=== PATIENT | female | born 1970 | race Two or more races ===

== ENCOUNTER → 2020-10-21 | Outpatient (CLI) | payer OTHER ==
[~2020-10-21] MED LIST: GADOTERATE 7.5 MMOL/15ML VIAL. IVP ONE
--- NOTE | 2020-10-21 13:06 | RAD ---
MRI BRAIN WO+W History:Reason: MEMORY LOSS, NOCTURNAL HEADACHES 15mL CLARISCAN / Spl. Instructions: / History: Technique: Multiplanar, multi sequential MR imaging was performed of the brain without and with intra venous contrast. Comparison: None Findings: No acute infarct. No intracranial hemorrhage. No mass effect. No hydrocephalus. Mild crowding of the cerebellar tonsils at the foramen magnum greatest on the right. Minimal foci of FLAIR hyperintensity within the frontal hemispheric white matter. Signal abnormality within the right sylvian fissure along the course of the right middle cerebral art elder M2 branches measures 0.9 x 0.5 cm (series 6 image 14 and series 10 image 17. There is peripheral enhancement of this region. Small gradient hypointensity within the left parietal lobe, may relate to prior microhemorrhage. Partially empty sella. Imaged orbits are unremarkable. Imaged paranasal sinuses and mastoid air cells are clear. Impression: 1. Signal abnormality within the right sylvian fissure in the region of the right middle cerebral ar dominik M2 branches with peripheral enhancement, concerning for vascular lesion such as aneurysm. Recomm end CT angiogram or MR angiogram to further assess. 2. Crowding of the cerebellar tonsils at the foramen magnum, right greater than left. 3. Minimal nonspecific white matter changes, may relate to sequelae of chronic microvascular ischemi a or migraine headaches, less likely demyelinating process. 4. Partially empty sella, often incidental, can be seen with intracranial hypertension in the approp riate clinical setting. Electronically signed by: Abimael Martin DO (10/21/2020 1:03 PM) [id number]
== END ==
LOC: MRI 10:41
PROVIDERS: ATTEND Physician Assistant Medical
DX: R51.9 Headache, unspecified (principal); E66.9 Obesity, unspecified; I83.893 Varicose veins of bilateral lower extremities with other complications; R41.3 Other amnesia
CPT/HCPCS: 70553; A9575

== ENCOUNTER → 2021-01-16 | Outpatient (CLI) | payer OTHER ==
[2021-01-16] MEDS: IOHEXOL 300 MG/ML 100ML VIAL. IV ONE (09:15)
--- NOTE | 2021-01-16 15:30 | RAD ---
CTA HEAD History:Reason: HEADACHE. ABNORMAL BRAIN MRI. MEMORY LOSS. / Spl. Instructions: OMNI 300 INJ. 75 MLS / History: Technique: After bolus of intravenous contrast, volumetric CT data acquisition was acquired of the he ad. Multiplanar reconstruction images to include MIP and 3-D reconstruction images are submitted. Exposure: One or more of the following individualized dose reduction techniques were utilized for thi s examination: 1. Automated exposure control 2. Adjustment of the mA and/or kV according to patient size 3. Use of iterative reconstruction technique. Comparison: October 21, 2020 MRI. Any determination of stenosis is based on NASCET criteria. Noncontrast CT head: No intracranial hemorrhage. No mass effect. No hydrocephalus. Calcination within the right sylvian fissure measures 0.8 x 0.5 cm corresponding with MRI finding. Ad ditional small calcifications bilaterally within the predominantly frontal cortex and several within the subarachnoid space. Imaged orbits are unremarkable. Imaged paranasal sinuses and mastoid air cells are clear. Head CTA: ICA: No stenosis, occlusion or aneurysm. MCA: No stenosis, occlusion or aneurysm. BROWN: No stenosis, occlusion or aneurysm. LOAD OUT PERSON: No stenosis, occlusion or aneurysm. origin of the left posterior cerebral artery. Basilar artery: No stenosis, occlusion or aneurysm. Distal vertebral arteries: No stenosis, occlusion or aneurysm. Patent superior sagittal, straight, transverse and sigmoid venous sinuses. Impression: 1. Scattered bilateral cortical and subarachnoid calcifications including calcification within the r ight sylvian fissure corresponding with MRI finding. Findings may relate to prior infection such as n eurocysticercosis. 2. No intracranial arterial stenosis, occlusion or aneurysm. Electronically signed by: Abimael Martin DO (01/16/2021 3:27 PM) [id number]
== END ==
LOC: CT 08:55
PROVIDERS: ATTEND Physician Assistant
DX: R41.3 Other amnesia (principal); R51.9 Headache, unspecified; R90.89 Other abnormal findings on diagnostic imaging of central nervous system
CPT/HCPCS: 70496; Q9967

== ENCOUNTER → 2021-11-25 | Outpatient (CLI) | payer OTHER ==
--- NOTE | 2021-11-25 12:39 | RAD ---
MRI lumbar spine without contrast HISTORY: Chronic lumbar pain with right-sided sciatica. Lumbago with right-sided sciatica. COMPARISON: No priors FINDINGS: Lumbar vertebral body height and alignment. No bone marrow edema of the lumbar spine. Conus terminates at the L1 lumbar vertebral level. Cauda equina is normal. Paraspinal soft tissues are nor mal. Lumbar disc disease described below. L1-L2: Shallow right eccentric disc bulge slightly deforms the ventral dural sac. No spinal canal or neural foraminal stenosis. L2-L3: No disc bulge or herniation. No spinal canal or neural foraminal stenosis. L3-L4: Disc desiccation, mild posterior disc height loss, mild-moderate disc bulge, ligament flavum m ild thickening, dorsal epidural hypertrophy, and facet hypertrophy and spurring. Moderate right neura l foraminal stenosis. Mild left neural foraminal stenosis. There is moderate narrowing of the right l ateral recess with some compression of the dural sac about the descending right L4 nerve roots. Moder ate spinal canal stenosis dural sac diameter 8 mm. L4-L5: Disc desiccation, posterior disc height loss, posterior disc annulus tear, left eccentric mild -moderate disc bulge and mild facet hypertrophy. There is mild narrowing of the left lateral recess a bout the descending left L5 nerve roots. Mild spinal canal stenosis dural sac diameter is 9 mm. Neura l foramina are patent. L5-S1: Posterior disc height loss. No sizable disc bulge or herniation. There is mild facet hypertrop hy and slight spurring more so on the right. No spinal canal or neural foraminal stenosis. IMPRESSION: Changes of lumbar degenerative disc disease and facet arthritis. This contributes to spin al canal and neural foraminal stenoses at L3-L4 and L4-L5. See above. Electronically signed by: Abel Vargas MD (11/25/2021 12:33 PM) [facility]
== END ==
LOC: MRI 09:58
PROVIDERS: ATTEND Physician Assistant
DX: M51.36 Other intervertebral disc degeneration, lumbar region (principal); M47.896 Other spondylosis, lumbar region; M51.27 Other intervertebral disc displacement, lumbosacral region; M48.061 Spinal stenosis, lumbar region without neurogenic claudication
CPT/HCPCS: 72148